=== PATIENT | male | born 1990 | race Asian ===

== ENCOUNTER 2022-09-30 14:22 | Emergency (ER) | payer MEDICAID ==
[~2022-09-30] VITALS: Ht 175.3 cm; Wt 75.0 kg
[2022-09-30 14:32] VITALS: BP 129/95
[2022-09-30] MEDS ORDERED: VISCOUS LIDOCAINE 2% 15 ML UDC PO STA (16:34)
[2022-09-30] MEDS ORDERED: MAGNESIUM/ALUMINUM HYDROXIDE/SIMETHICONE 30ML UDC PO STA (16:34)
[2022-09-30] MEDS ORDERED: MORPHINE SULFATE 4 MG/ML CPJ (NOT FOR IM USE) IV STA (16:34)
[2022-09-30] MEDS ORDERED: ONDANSETRON HCL 4MG/2ML INJ IV STA (16:34)
[2022-09-30] MEDS ORDERED: FAMOTIDINE 20MG TABLET PO ONE (16:45)
[2022-09-30 17:57] LABS: HEMATOCRIT. 45.3 % (42.0-52.0); HEMOGLOBIN. 15.5 g/dL (14.0-18.0); MEAN CORPUSCULAR HEMOGLOBIN 29.8 pg (28.0-32.0); MEAN CORPUSCULAR VOLUME 87.1 fL (80.0-94.0); MEAN PLATELET VOLUME 9.2 fl (7.4-10.4); PLATELET 193 x1000/uL (130-400); RED CELL DISTRIBUTION WIDTH 13.1 % (11.6-14.6)
[2022-09-30 18:08] LABS: CHLORIDE 103 mEq/L (98-107)
[2022-09-30 18:23] LABS: PLATELET ESTIMATE NORMAL
[2022-09-30 19:14] LABS: CLARITY URINE CLEAR (CLEAR); COLOR URINE DARK YELLOW (YELLOW); KETONES URINE 3+ (NEGATIVE); LEUKOCYTE ESTERASE URINE NEGATIVE (NEGATIVE); NITRITE URINE NEGATIVE (NEGATIVE); OCCULT BLOOD URINE NEGATIVE (NEGATIVE); PH URINE 6.5 (4.5-8.0); PROTEIN URINE 1+ (NEGATIVE); SPECIFIC GRAVITY URINE 1.039 (1.005-1.030)
[2022-09-30] MEDS ORDERED: FAMO-135 MT (19:48)
[2022-09-30] MEDS ORDERED: MAG-55 MT (19:48)
== END 2022-09-30 20:09 | disposition home or self-care (01) ==
LOC: ER 14:22
DX: R10.33 Periumbilical pain (principal); D72.825 Bandemia; R51.9 Headache, unspecified; M06.9 Rheumatoid arthritis, unspecified
CPT/HCPCS: 36415; 74176; 80053; 81003; 83690; 85025; 96374; 96375; 99284; J2270; J2405